=== PATIENT | male | born 1965 | race Caucasian/White ===

== ENCOUNTER → 2018-05-07 | Outpatient (CLI) | payer BC ==
--- NOTE | 2018-05-07 08:20 | MR ---
EXAMINATION TYPE: MR shoulder LT wo con DATE OF EXAM: 05/07/2018 COMPARISON: None HISTORY: Left shoulder pain TECHNIQUE: Multiplanar, multisequence imaging of the left shoulder is performed without contrast. FINDINGS: Rotator Cuff: There is a near full-thickness 1 mm focal fissure through the anterior fibers of the tello praspinatus demonstrated on T2 coronal image 9 and sagittal image 12. Within the remainder of the sup raspinatus there is slight fraying of the bursal surface fibers and signal heterogeneity indicative o f mild tendinosis. Similarly within the infraspinatus there is articular surface and bursal surface f raying of the distal fibers without discontinuity. There is also signal alteration of the myotendinou s junction and distal fibers indicative of mild tendinosis. The teres minor is unremarkable in signal and muscle volume. There is a 7 mm intrasubstance tear of the superior fibers of the subscapularis superimposed upon mod erate tendinopathy. Acromioclavicular Joint: There is mild to moderate acromioclavicular arthropathy with capsular hypert rophy, small marginal osteophytes and subchondral cysts. Small cysts are also seen cranial to the acr omioclavicular joint. Glenohumeral Joint: There is minimal joint space narrowing and chondral heterogeneity with few osseou s cysts of the humeral head overall indicative of mild arthropathy. Labrum: The labrum appears grossly intact given limitation of non-arthrogram study. There is posterio r labral degeneration noted. Biceps Tendon: The long head of biceps is in normal location within bicipital groove. There is a spli t tear of the intra-articular portion of the supraspinatus with appropriate insertion on the biceps a nchor. Bone marrow signal: No focal abnormal marrow signal is appreciated. IMPRESSION: 1. Subcentimeter intrasubstance tear of the superior fibers of the subscapularis superimposed upon mo derate tendinopathy. 2. Short segment split tear of the intra-articular portion of the biceps tendon proximal to its inser tion on the biceps anchor. 3. Mild supraspinatus and infraspinatus tendinopathy with 1 mm focal fissure through the anterior fib ers of the supraspinatus. 4. Mild to moderate acromioclavicular arthropathy and mild glenohumeral arthropathy. 5. Posterior labral degeneration.
== END ==
LOC: RADMRIMAIN 06:08
PROVIDERS: ATTEND Orthopaedic Surgery
DX: S46.912A Strain of unspecified muscle, fascia and tendon at shoulder and upper arm level, left arm, initial encounter (principal); M75.92 Shoulder lesion, unspecified, left shoulder; M19.012 Primary osteoarthritis, left shoulder

== ENCOUNTER → 2019-01-03 | Outpatient (CLI) | payer BC ==
[2019-01-03 11:22] LABS: Basophils % (A) 1 %; Eosinophils # (A) 0.3 k/uL (0-0.7); Eosinophils % (A) 5 %; HCT 40.3 % (39.0-53.0); HGB 13.3 gm/dL (13.0-17.5); Lymphocytes # (A) 1.5 k/uL (1.0-4.8); Lymphocytes % (A) 25 %; MCH 32.9 pg (25.0-35.0); MCV 99.7 fL (80.0-100.0); Mean Platelet Volume 6.7; Monocytes # (A) 0.3 k/uL (0-1.0); Monocytes % (A) 5 %; Neutrophils # (A) 3.6 k/uL (1.3-7.7); Neutrophils % (A) 63 %; Platelet Count 214 k/uL (150-450); RBC 4.04 m/uL (4.30-5.90); RDW 13.1 % (11.5-15.5); WBC 5.8 k/uL (3.8-10.6)
[2019-01-03 11:33] LABS: Potassium 4.3 mmol/L (3.5-5.1)
== END ==
LOC: LABPAT 10:32
PROVIDERS: ATTEND Orthopaedic Surgery
DX: Z01.818 Encounter for other preprocedural examination (principal); Z01.812 Encounter for preprocedural laboratory examination; M75.42 Impingement syndrome of left shoulder
CPT/HCPCS: 80051; 85025; 93005

== ENCOUNTER 2019-01-15 06:30 | Day surgery (SDC) | payer BC ==
[2019-01-14 09:50] VITALS: BMI 30.8
--- NOTE | 2019-01-14 13:40 | HP ---
HISTORY AND PHYSICAL Surgery is scheduled for 01/15/2019. Mandeep Marsh is a 53-year-old patient who is seen with progressive left shoulder pain. We discussed treatment options with him. He elected to proceed with left shoulder arthroscopy. Consent was obtained. PAST MEDICAL HISTORY: Noncontributory. PAST SURGICAL HISTORY: Tonsillectomy, sinus surgery, shoulder arthroscopy. DAILY MEDICATIONS: 1. Allopurinol. 2. Ibuprofen. ALLERGIES: None. SOCIAL HISTORY: Denies tobacco use. PHYSICAL EXAMINATION: Physical evaluation of the left shoulder: Flexion 170 degrees, abduction is 160 degrees, external rotation 60 degrees with some weakness. Tenderness along the anterior lateral acromion and rotator cuff insertion site. Impingement sign is positive at 90 degrees. Distal neurovascular exam is intact. Radiographs of the left shoulder revealed a type 2 anterior acromion as well as acromioclavicular joint osteoarthritis. MRI of left shoulder revealed rotator cuff tear, partial biceps tendon tear and acromioclavicular joint osteoarthritis. IMPRESSION: 1. Left shoulder impingement with rotator cuff tear. 2. Left shoulder acromioclavicular joint osteoarthritis. 3. Gout. PLAN: Left shoulder arthroscopy, subacromial decompression, possible arthroscopic rotator cuff repair, probable Muriel procedure and debridement. MMODL / IJN: [id number] /
[2019-01-15] MEDS ORDERED: LIDOCAINE 1% 20 ML VIAL (10MG/ML) FOR IV START INTRADERMA ONE (07:00)
[2019-01-15] MEDS ORDERED: LACTATED RINGERS 1,000 ML IV ONE ×2 (07:00→10:04)
[2019-01-15] MEDS ORDERED: ONDANSETRON 4 MG/2 ML VIAL IVP ONE ×2 (07:10→10:21)
[2019-01-15] MEDS ORDERED: DEXAMETHASONE SOD PHOSPHATE 10 MG/ML 1 ML VIAL IV ONE ×2 (07:10→10:21)
[2019-01-15] MEDS ORDERED: MIDAZOLAM 2 MG/2 ML VIAL IVP ONE (07:30)
--- NOTE | 2019-01-15 07:44 | P.ANPRN ---
Procedure Note - Anesthesia - Nerve Block Performed Left Interscalene Time Out Performed: Yes Date of Procedure: 01/15/19 Procedure Start Time: 07:28 Procedure Stop Time: 07:40 Location of Patient Procedure: PreOp Indication: Acute Post-Operative Pain, Requested by Surgeon (Dr Diaz) Sedation Type: Sedate with meaningful contact maintained Preparation: Sterile Prep Position: Supine Catheter: None Needle Types: Pajunk Needle Gauge: 21 Ultrasound used to visualize needle placement: Yes Ultrasound used to observe medication spread: Yes Injectate: 0.5% Ropivacaine (see comment for volume) (20cc Ropivacaine 0.5%, Decadron 4mg) Blood Aspirated: No Pain Paresthesia on Injection Noted: No Resistance on Injection: Normal Image Stored and Saved: Yes Events: Uneventful and Well Tolerated
[2019-01-15] MEDS ORDERED: DEXAMETHASONE SOD PHOSPHATE 4 MG/ML 1 ML VIAL ONE (07:50)
[2019-01-15] MEDS ORDERED: fentaNYL (PF) 50 MCG/ML 2 ML AMP ONE (07:50)
[2019-01-15] MEDS ORDERED: ROPIVACAINE 5 MG/ML 30 ML VIAL ONE (07:50)
[2019-01-15] MEDS ORDERED: PROPOFOL 10 MG/ML 20 ML VIAL IV ONE (07:50)
[2019-01-15] MEDS ORDERED: LIDOCAINE 1% INJ 10MG/ML (20 ML MDV) ONE (07:50)
[2019-01-15] MEDS ORDERED: SUCCINYLCHOLINE CHLORIDE 100 MG/5 ML SYR IV ONE (07:50)
--- NOTE | 2019-01-15 09:39 | P.OP ---
Date of Procedure: 01/15/19 Preoperative Diagnosis: Left shoulder impingement Postoperative Diagnosis: 1. Left shoulder rotator cuff tear 2. Left shoulder impingement 3. Left shoulder acromioclavicular joint osteoarthritis 4. Left shoulder partial long head biceps tendon tear 5. Left shoulder superficial anterior labral tear Procedure(s) Performed: 1. Left shoulder arthroscopic rotator cuff repair 2. Left shoulder arthroscopic subacromial decompression 3. Left shoulder arthroscopic Muriel procedure 4. Left shoulder arthroscopic biceps tenotomy 5. Left shoulder arthroscopic debridement labral tear Implants: 14.75 Arthrex swivel lock anchor Anesthesia: GETA, regional (Interscalene block) Surgeon: Ciaran Diaz Supervisor Special Effects #1: Ray Sarmiento Estimated Blood Loss (ml): 11 Pathology: none sent Condition: stable Disposition: PACU Indications for Procedure: 53-year-old patient seen with progressive left shoulder pain. After having treatment options discussed, he elected to proceed with arthroscopy. Operative Findings: See description of procedure Description of Procedure: Patient underwent an interscalene block by department of anesthesia for postoperative pain management. The patient was then taken to the operative suite. The patient underwent a general anesthetic by the department of anesthesia. The patient was placed into a lateral position and secured. There was appropriate padding of the bony prominence. Left shoulder was then prepped and draped in normal sterile orthopedic fashion. We placed the extremity in 10 pounds of longitudinal traction. A posterior incision was now made for a posterior working portal site. The trocar and cannula were inserted into the glenohumeral joint. Arthroscopy was initiated. Spinal needle was now inserted anteriorly, to ascertain the anterior working portal site. An incision was now made in that area, a trocar was inserted followed by a probe. There was superficial tearing of the anterior labrum. There was partial tearing and hyperemia long head biceps tendon. There were some grade 1 chondromalacia changes of the glenohumeral joint with no osteochondral tears present. I performed an arthroscopic biceps tenotomy. I debrided the superficial labral tear down to stable labral tissue. The residual labrum was probed and found to be stable. Instruments were removed from glenohumeral joint. Utilizing the posterior working portal site, the trocar and cannula were inserted into the subacromial space. Arthroscopy initiated. I made an incision 2 fingerbreadths lateral to the acromion. I introduced my trocar followed by my ArthroCare ablator. I now began ablating thick subacromial bursal tissue, which exposed the undersurface of the anterior acromion. There was diminished subacromial space. There was a very prominent anterior acromion. A motorized bur was introduced and a subacromial decompression was performed. I also excised some osteophytes off the inferior aspect of the distal clavicle. The AC joint was visualized and noted to be fairly arthritic. The motorized bur was introduced in the anterior portal site and a Muriel procedure was performed without difficulty, decompressing the AC joint nicely. I turned my attention to the rotator cuff. There was a full-thickness perforation noted along the anterior aspect distal supraspinatus. I debrided the margins gained down to stable tendon tissue. I abraded the footprint with a motorized bur getting some petechial bleeding. I passed 2 everted mattress sutures through good bites of rotator cuff tendon. A hole was punched into the footprint area for insertion of an anchor. All 4 limbs of suture were passed through a Arthrex 4.75 swivel lock anchor eyelet. The eye was introduced into the pre-punch hole. Percy MILNER tension the sutures appropriately while I held the eyelet in position. Percy MILNER out introduced and deployed the anchor compressing the tendon along the footprint very nicely with good fixation of anchor. All residual suture limbs were now clipped. We had good compression of the tendon along the entire footprint. I injected 1 mL Renyte intra-articular. Instruments now removed from the portal sites. All portal sites were approximated with nylon suture. Sterile dressings were applied followed by a shoulder sling. Ray MILNER assisted in this case. The patient was awakened, transferred to a bed, and taken to recovery in stable condition.
[2019-01-15 09:41] VITALS: TEMP 97.3
[2019-01-15 10:20] VITALS: RESP 18
[2019-01-15] MEDS ORDERED: SCOPOLAMINE 1.5MG/72HR PATCH TRANSDERM ONE (10:21)
[2019-01-15] MEDS ORDERED: MIDAZOLAM 2 MG/2 ML VIAL IV PRN (10:21)
[2019-01-15] MEDS ORDERED: LACTATED RINGERS 1,000 ML IV SCH (10:21)
[2019-01-15] MEDS ORDERED: LIDOCAINE 1% 20 ML VIAL (10MG/ML) FOR IV START INTRADERMA PRN (10:21)
[2019-01-15] MEDS ORDERED: HYDROmorphone 0.5 MG/0.5 ML SYRINGE IVP PRN (10:21)
[2019-01-15 11:27] VITALS: BP 129/74; PULSE 57
== END 2019-01-15 11:15 | disposition home or self-care (01) ==
LOC: OR 06:30
PROVIDERS: ATTEND Orthopaedic Surgery
DX: M75.122 Complete rotator cuff tear or rupture of left shoulder, not specified as traumatic (principal); M75.42 Impingement syndrome of left shoulder; M19.012 Primary osteoarthritis, left shoulder; S46.112A Strain of muscle, fascia and tendon of long head of biceps, left arm, initial encounter; S43.492A Other sprain of left shoulder joint, initial encounter; M10.9 Gout, unspecified; G47.33 Obstructive sleep apnea (adult) (pediatric); F17.210 Nicotine dependence, cigarettes, uncomplicated; Z79.1 Long term (current) use of non-steroidal anti-inflammatories (NSAID); Z79.899 Other long term (current) drug therapy; Z99.89 Dependence on other enabling machines and devices; Z90.89 Acquired absence of other organs; Z98.890 Other specified postprocedural states; X58.XXXA Exposure to other specified factors, initial encounter
CPT/HCPCS: 64415; 76942; 29827; 29824; 29826; C1713; Q4212; J2250; J1100 ×2; J0690; J2405; J2001; J3010; J2795; J0330; J2704

== ENCOUNTER → 2019-08-12 | Outpatient (CLI) | payer BC ==
--- NOTE | 2019-08-13 18:04 | MR ---
EXAMINATION TYPE: MR shoulder RT wo con DATE OF EXAM: 08/12/2019 COMPARISON: Plain film 08/05/2019 HISTORY: Rt shoulder pain S/P fall 1-2 weeks ago Technique: Multiplanar, multiecho imaging on a 3.0 Alisha magnet is performed through the shoulder. Findings: Long head of the biceps tendon is within the bicipital groove. Fluid surrounds the long hea d of the biceps tendon suggestive for moderate tendinosis. There is a small joint effusion present.Glenoid labrum as visualized on this noncontrast study appear s intact. There is increased signal within the region of the greater tuberosity. There appears to be a subtle n ondisplaced fracture of the greater tuberosity. This is more along the anterior lateral aspect. Rotator cuff tendons are evaluated. No suspicious retraction is evident. No tear is evident. Perfora tion within the supraspinatus tendon could be considered. However, significant fluid within the subac romial bursa or subdeltoid bursa is not evident. The acromioclavicular junction is hypertrophied which can contribute to impingement syndrome. IMPRESSIONS: 1. Nondisplaced subtle fracture or severe contusion of the greater tuberosity. 2. Moderate tendinosis of the long head of the biceps tendon. 3. Small perforation of the supraspinatus tendon is not excluded. Tendinosis is favored however. 4. Small joint effusion.
== END | disposition home or self-care (01) ==
LOC: RADMRIMAIN 08:02
PROVIDERS: ATTEND Orthopaedic Surgery
DX: M25.411 Effusion, right shoulder (principal); M75.21 Bicipital tendinitis, right shoulder

== ENCOUNTER → 2020-01-06 | Outpatient (CLI) | payer BC ==
[2020-01-06 07:59] LABS: Basophils % (A) 1 %; Eosinophils # (A) 0.3 k/uL (0-0.7); Eosinophils % (A) 8 %; HCT 41.9 % (39.0-53.0); HGB 13.9 gm/dL (13.0-17.5); Lymphocytes # (A) 1.3 k/uL (1.0-4.8); Lymphocytes % (A) 30 %; MCH 32.4 pg (25.0-35.0); MCHC 33.3 g/dL (31.0-37.0); MCV 97.6 fL (80.0-100.0); Mean Platelet Volume 6.9; Monocytes # (A) 0.3 k/uL (0-1.0); Monocytes % (A) 6 %; Neutrophils # (A) 2.4 k/uL (1.3-7.7); Neutrophils % (A) 53 %; Platelet Count 190 k/uL (150-450); RDW 12.8 % (11.5-15.5); WBC 4.4 k/uL (3.8-10.6)
[2020-01-06 08:10] LABS: Potassium 4.9 mmol/L (3.5-5.1)
== END | disposition home or self-care (01) ==
LOC: LABPAT 07:06
PROVIDERS: ATTEND Orthopaedic Surgery
DX: M75.41 Impingement syndrome of right shoulder (principal)
CPT/HCPCS: 36415; 80051; 85025; 93005

== ENCOUNTER 2020-01-21 08:41 | Day surgery (SDC) | payer BC ==
[2020-01-19 09:53] VITALS: BMI 30.8
--- NOTE | 2020-01-20 14:06 | HP ---
HISTORY AND PHYSICAL DATE OF SURGERY: 01/21/2020 Mandeep Marsh is a 54-year-old patient seen with progressive right shoulder pain. We discussed options. He has post right shoulder arthroscopy. Consent was obtained. PAST MEDICAL HISTORY: Gout. PAST SURGICAL HISTORY: Left shoulder arthroscopy, tonsillectomy, sinus surgery. DAILY MEDICATIONS: Allopurinol, ibuprofen. ALLERGIES: None. SOCIAL HISTORY: He denies tobacco use. PHYSICAL EVALUATION OF THE RIGHT SHOULDER: Flexion 160, abduction 150, external rotation is 45 with weakness and pain. Tenderness along the anterolateral acromion rotator cuff insertion site. Impingement positive at 90 degrees. Distal neurovascular exam is intact. RADIOGRAPHS OF THE RIGHT SHOULDER: Revealed healed greater tuberosity fracture. MRI right shoulder revealed rotator cuff tendon tear. IMPRESSION: 1. Right shoulder impingement with rotator cuff tear. 2. Right shoulder acromioclavicular joint osteoarthritis. PLAN: Right shoulder arthroscopy, subacromial decompression, arthroscopic rotator cuff repair, Muriel procedure and debridement. MMODL / IJN: [id number] /
[~2020-01-21 08:41] MED LIST: DEXAMETHASONE SOD PHOSPHATE 10 MG/ML 1 ML VIAL IV ONE; LACTATED RINGERS 1,000 ML IV SCH; LIDOCAINE 1% (10MG/ML) FOR IV START INTRADERMA PRN; MIDAZOLAM 2 MG/2 ML VIAL IV PRN; fentaNYL (PF) 50 MCG/ML 2 ML AMP IVP PRN
[2020-01-21] MEDS ORDERED: MIDAZOLAM 2 MG/2 ML VIAL ONE (10:08)
[2020-01-21] MEDS ORDERED: LIDOCAINE 1% INJ 10MG/ML (20 ML MDV) ONE (10:08)
[2020-01-21] MEDS ORDERED: DEXAMETHASONE SOD PHOSPHATE 4 MG/ML 1 ML VIAL ONE (10:08)
[2020-01-21] MEDS ORDERED: SUCCINYLCHOLINE CHLORIDE 100 MG/5 ML SYR IV ONE (10:08)
[2020-01-21] MEDS ORDERED: ROPIVACAINE 5 MG/ML 30 ML VIAL ONE (10:08)
[2020-01-21] MEDS ORDERED: fentaNYL (PF) 50 MCG/ML 2 ML AMP ONE (10:08)
[2020-01-21] MEDS ORDERED: PROPOFOL 10 MG/ML 20 ML VIAL IV ONE (10:08)
[2020-01-21 10:10] VITALS: RESP 16
--- NOTE | 2020-01-21 12:04 | P.OP ---
Date of Procedure: 01/21/20 Preoperative Diagnosis: Right shoulder impingement Postoperative Diagnosis: 1. Right shoulder rotator cuff tear 2. Right shoulder impingement 3. Right shoulder acromioclavicular joint osteoarthritis 4. Right shoulder partial long head biceps tendon tear Procedure(s) Performed: 1. Right shoulder arthroscopic rotator cuff repair 2. Right shoulder arthroscopic subacromial decompression 3. Right shoulder arthroscopic Muriel procedure 4. Right shoulder arthroscopic biceps tenotomy Implants: 14.75 Arthrex swivel lock anchor Anesthesia: GETA, regional (Interscalene block) Surgeon: Ciaran Diaz Water Taxi Operator #1: Ray Sarmiento Estimated Blood Loss (ml): 11 Pathology: none sent Condition: stable Disposition: PACU Indications for Procedure: 54-year-old patient seen with progressive right shoulder pain. After treatment options were discussed, he elected to proceed with arthroscopy. Operative Findings: see description of procedure Description of Procedure: Patient underwent an interscalene block by department of anesthesia. The patient was then taken to the operative suite. The patient underwent a general anesthetic by the department of anesthesia. The patient was placed into a lateral position and secured. There was appropriate padding of the bony prominence. Right shoulder was then prepped and draped in normal sterile orthopedic fashion. We placed the extremity in 10 pounds of longitudinal traction. A posterior incision was now made for a posterior working portal site. The trocar and cannula were inserted into the glenohumeral joint. Arthroscopy was initiated. Spinal needle was now inserted anteriorly, to ascertain the anterior working portal site. An incision was now made in that area, a trocar was inserted followed by a probe. There was some partial tearing and hyperemia long head biceps tendon. There was some superficial fraying along the superior labrum. There were grade 2 chondromalacia changes of the humeral head. I performed an arthroscopic biceps tenotomy. I debrided the superficial labral tears getting down to stable labral tissue. The residual labrum was again probed and found to be stable. Instruments now removed from glenohumeral joint. Utilizing the posterior working portal site, the trocar and cannula were inserted into the subacromial space. Arthroscopy initiated. I made an incision 2 fingerbreadths lateral to the acromion. I introduced my trocar followed by my ArthroCare ablator. I now began ablating thick subacromial bursal tissue, which exposed the undersurface of the anterior acromion. There was diminished subacromial space. There was a fairly prominent anterior acromion along the medial side adjacent to the acromioclavicular joint. A motorized bur was introduced and a subacromial decompression was performed. I also excised some osteophytes off the inferior aspect of the distal clavicle. The AC joint was visualized and noted to be severely arthritic. The motorized bur was introduced in the anterior portal site and a Muriel procedure was performed without difficulty, decompressing the AC joint nicely. I turned my attention to the rotator cuff. There was a 1 cm rotator cuff tear. I debrided the margins getting down to stable tendon tissue. The defect measured 1.5 cm. I abraded the footprint with a motorized bur. I passed 3 everted mattress sutures through good bites of rotator cuff tendon. I punched the hole in the footprint area for insertion of an anchor. All 6 limbs of suture were now passed through the eyelet of a 4.75 Arthrex swivel lock anchor. The eyelet was placed into the pre-punch hole. I held it in position while Percy MILNER tensioned all 6 limbs of suture and then deployed the anchor with good fixation noted. All residual suture limbs were now clipped. We had good compression of the tendon along the entire footprint. I injected 1 mL Renyte intra-articularly. Instruments now removed from the portal sites. All portal sites were approxi mated with nylon suture. Sterile dressings were applied followed by a shoulder sling. Ray MILNER assisted in this complex case. The patient was awakened, transferred to a bed, and taken to recovery in stable condition.
[2020-01-21 12:07] VITALS: TEMP 97
--- NOTE | 2020-01-21 12:56 | P.ANPRN ---
Procedure Note - Anesthesia - Nerve Block Performed Right Interscalene Time Out Performed: Yes (:36) Date of Procedure: 01/21/20 Procedure Start Time: 36 Procedure Stop Time: :48 Location of Patient: PreOp Indication: Acute Post-Operative Pain, Requested by Surgeon (Dr Diaz) Sedation Type: Sedate with meaningful contact maintained Preparation: Sterile Prep Position: Supine Catheter: None Needle Types: Pajunk Needle Gauge: Other (see comment) (22g) Ultrasound used to visualize needle placement: Yes Ultrasound used to observe medication spread: Yes Injectate: 0.5% Ropivacaine (see comment for volume) (20cc + Decadrom 4mg) Blood Aspirated: No Pain Paresthesia on Injection Noted: No Resistance on Injection: Normal Image Stored and Saved: Yes Events: Uneventful and Well Tolerated
[2020-01-21 13:09] VITALS: BP 112/75; PULSE 54
== END 2020-01-21 13:23 | disposition home or self-care (01) ==
LOC: OR 08:41
PROVIDERS: ATTEND Orthopaedic Surgery
DX: M75.101 Unspecified rotator cuff tear or rupture of right shoulder, not specified as traumatic (principal); M19.011 Primary osteoarthritis, right shoulder; S46.111A Strain of muscle, fascia and tendon of long head of biceps, right arm, initial encounter; M94.211 Chondromalacia, right shoulder; S43.431A Superior glenoid labrum lesion of right shoulder, initial encounter; M25.811 Other specified joint disorders, right shoulder; M10.9 Gout, unspecified; J45.909 Unspecified asthma, uncomplicated; G47.33 Obstructive sleep apnea (adult) (pediatric); Z79.1 Long term (current) use of non-steroidal anti-inflammatories (NSAID); Z79.899 Other long term (current) drug therapy; Z98.890 Other specified postprocedural states
CPT/HCPCS: 64415; 76942; 29826; 29824; 29827; C1713 ×2; Q4212; J2250; J1100 ×2; J0690; J2001; J3010; J2795; J0330; J2704